=== PATIENT | female | born 2000 | race African-American/Black ===

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

== ENCOUNTER 2020-07-07 17:28 | Emergency (ER) | payer SELFPAY ==
[~2020-07-07] VITALS: Ht 172.7 cm; Wt 103.0 kg
[~2020-07-07 17:28] MED LIST: AMOX875T PO; DIPH25CA58 PO; NYST15CR2 TP; PRED50TA PO
--- NOTE | 2020-07-07 18:02 | PHYS DOC ---
Past Medical History Past Medical History: No Pertinent History (KALPANA FLORES APRN) Past Surgical History: No Surgical History Additional Past Surgical Histo: Bilat MYRINGOTOMY (KALPANA FLORES APRN) Smoking Status: Never Smoker Alcohol Use: None Drug Use: None (KALPANA FLORES APRN) General Adult EDM: Chief Complaint: VAGINAL BLEEDING HPI: HPI: Patient is a 20 year old female 1 para 0 currently 6 weeks presenting to the ED today complaining of vaginal bleeding in that be mana yesterday. Patient states this started as spotting and today she feels the bleeding has gotten slightly heavier. She states she has used 1 feminine pad since this morning. Denies any abdominal pain, denies any concerns for STDs, denies any nausea vomiting. Last menstrual cycle May 26, 2020 (KALPANA FLORES APRN) Review of Systems: Review of Systems: Constitutional: Denies fever or chills. [] Eyes: Denies change in visual acuity. [] HENT: Denies nasal congestion or sore throat. [] Respiratory: Denies cough or shortness of breath. [] Cardiovascular: Denies chest pain or edema. [] GI: Reports vaginal bleeding in . Denies abdominal pain, nausea, vomiting, bloody stools or diarrhea. [] : Denies dysuria. [] Musculoskeletal: Denies back pain or joint pain. [] Integument: Denies rash. [] Neurologic: Denies headache, focal weakness or sensory changes. [] Psychiatric: Denies depression or anxiety. [] (KALPANA FLORES APRN) Heart Score: Risk Factors: Risk Factors: DM, Current or recent (<one month) smoker, HTN, HLP, family history of CAD, obesity. Risk Scores: Score 0 - 3: 2.5% MACE over next 6 weeks - Discharge Home Score 4 - 6: 20.3% MACE over next 6 weeks - Admit for Clinical Observation Score 7 - 10: 72.7% MACE over next 6 weeks - Early Invasive Strategies (KALPANA FLORES APRN) Allergies: Allergies: Allergies Coded Allergies Type Severity Reaction Last Updated Verified amoxicillin Allergy Intermediate maculopapular rash. No Airway compromise Yes (KALPANA FLORES APRN) Physical Exam: PE: Constitutional: Well developed, well nourished, no acute distress, non-toxic appearance. [] HENT: Normocephalic, atraumatic, bilateral external ears normal, oropharynx moist, no oral exudates, nose normal. [] Eyes: PERRLA, EOMI, conjunctiva normal, no discharge. [] Neck: Normal range of motion, no tenderness, supple, no stridor. [] Cardiovascular:Heart rate regular rhythm, no murmur [] Lungs & Thorax: Bilateral breath sounds clear to auscultation [] Abdomen: Bowel sounds normal, soft, no tenderness, no masses, no pulsatile masses. [] Pelvic exam External pelvic appears normal, cervix is visualized, closed, no CMT, no adnexal tenderness, trace amount of bright red blood in the vaginal vault Skin: Warm, dry, no erythema, no rash. [] Back: No tenderness, no CVA tenderness. [] Extremities: No tenderness, no cyanosis, no clubbing, ROM intact, no edema. [] Neurologic: Alert and oriented X 3, normal motor function, normal sensory function, no focal deficits noted. [] Psychologic: Affect normal, judgement normal, mood normal. [] (KALPANA FLORES APRN) Current Patient Data: Labs: Laboratory Tests Test 07/07/20 17:50 POC Urine HCG, Qualitative Hcg positive (Negative) (KALPANA FLORES APRN) EKG: EKG: [] (KALPANA FLORES APRN) Radiology/Procedures: Radiology/Procedures: []PROCEDURE: OB <14 WKS W/TV Obstetric ultrasound less than 14 weeks with transvaginal: Reason for examination: Vaginal bleeding and . Transabdominal and transvaginal ultrasound examination of the pelvis was performed. Transabdominally, the uterus appears be normal in size at 7.3 x 3.9 cm in greatest dimension. The endometrium and adnexa are not optimally visualized. Transvaginally, the uterus shows no focal lesions. Endometrium is not abnormally thickened at 9.6 mm. No intrauterine or ectopic gestation is seen. Right ovary measures 1.8 x 3.0 x 1.7 cm in greatest dimension and contains a small follicle and normal vascular flow. Left ovary measures 2.6 x 1.2 x 2.1 cm in greatest dimension contains a small follicle normal vascular flow. No adnexal masses or free fluid are seen. IMPRESSION: No evidence of intrauterine or ectopic gestation. Electronically signed by: Oly Mendosa MD (07/07/2020 6:20 PM) [facility] DICTATED and SIGNED BY: OLY MENDOSA MD DATE: 07/07/20 [id number] (KALPANA FLORES APRN) Course & Med Decision Making: Course & Med Decision Making Pertinent Labs and Imaging studies reviewed. (See chart for details) This is a 20-year-old female patient presenting to the ED today complaining of vaginal bleeding in , symptoms began yesterday. She is a 1 para 0. Last menstrual cycle May 26, 2020 Positive urine hCG. CBC with a normal WBC, hemoglobin 11.9, hematocrit 34.8. OB ultrasound negative for an IUP or ectopic. Beta Hcg [address] Camacho awaiting type and screen and UA (KALPANA FLORES APRN) Course & Med Decision Making I assumed care of this patient at 1900. Briefly this is a 20-year-old female who is reportedly 6 weeks by last muscle. Presented the emergency department for new onset of vaginal bleeding. Labs and ultrasound were obtained which did not demonstrate any significant abnormality and there is no detected heartbeat. At this time is presumed that there is a completed spontaneous . Initially awaiting for review Rh type make sure that the patient did not require RhoGam. Patient appears to be a positive at this point can be safely discharged home (GERALD CAMACHO MD) Dragon Disclaimer: Dragon Disclaimer: This electronic medical record was generated, in whole or in part, using a voice recognition dictation system. (KALPANA FLORES APRN) Departure Departure Impression: Primary Impression: Miscarriage Disposition: 01 DC HOME SELF CARE/HOMELESS Condition: STABLE Referrals: NO PCP (PCP) Patient Instructions: Miscarriage Additional Instructions: EMERGENCY DEPARTMENT GENERAL DISCHARGE INSTRUCTIONS Thank you for coming to [facility] Emergency Department (ED) today and trusting us with you care. We trust that you had a positive experience in our Emergency Department. If you wish to speak to the department management, you may call the Director at [phone]. YOUR FOLLOW UP INSTRUCTIONS ARE FOLLOWS: 1. Do you have a private Doctor? If you do not have a private doctor, please ask for a resource list of physicians or clinics that may be able to assist you with follow up care. 2. The Emergency Physicain has interpreted your x-rays. The X-Ray specialist will also review them. If there is a change in the findings, you will be notified in 48 hours when at all possible. 3. A lab test or culture has been done, your results will be reviewed and you will be notified if you need a change in treatment. ADDITIONAL INSTRUCTIONS AND INFORMATION: 1. Your care today has been supervised by a physician who is specially trained in emergency care. Many problems require more than one evaluation for a complete diagnosis and treatment. We recommend that you schedule your follow up appointment as recommended to ensure complete treatment of you illness or injury. If you are unable to obtain follow up care and continue to have a problem, or if your condition worsens, we recommend that you return to the ED. 2. We are not able to safely determine your condition over the phone nor are we able to give sound medical advice over the phone. For these safety reasons, if you call for medical advice we will ask you to come to the ED for further evaluation. 3. If you have any questions regarding these discharge instructions please call the ED at [phone]. SAFETY INFORMATION: In the interest of safety, wellness, and injury prevention; we encourage you to wear your sealbelt, if you smoke; quite smoking, and we encourage family to use a protective helmet for bicycling and other sporting events that present an increased risk for head injury. IF YOUR SYMPTOMS WORSEN OR NEW SYMPTOMS DEVELOP, OR YOU HAVE CONCERNS ABOUT YOUR CONDITION; OR IF YOUR CONDITION WORSENS WHILE YOU ARE WAITING FOR YOUR FOLLOW UP APPOINTMENT; EITHER CONTACT YOUR PRIMARY CARE DOCTOR, THE PHYSICIAN WHOSE NAME AND NUMBER YOU WERE GIVEN, OR RETURN TO THE ED IMMEDIATELY. KALPANA FLORES APRN Jul 07, 2020 18:02 GERALD CAMACHO MD Jul 07, 2020 20:37
[2020-07-07 18:04] LABS: BARBITURATES NEG (NEG); BENZODIAZEPINES NEG (NEG); CANNABINOIDS NEG (NEG); COCAINE NEG (NEG); METHADONE NEG (NEG); OPIATES NEG (NEG); PHENCYCLIDINE NEG (NEG)
[2020-07-07 18:07] LABS: BASO # 0.1 x10^3/uL (0.0-0.2); BASO % 1 % (0-3); EOS # 0.1 x10^3/uL (0.0-0.7); EOS % 2 % (0-3); HEMATOCRIT 34.8 % (36.0-47.0); HEMOGLOBIN 11.9 g/dL (12.0-15.5); LYMPH # 2.6 x10^3/uL (1.0-4.8); LYMPH % 38 % (24-48); MEAN CORPUSCULAR HEMOGLOBIN 30 pg (25-35); MEAN CORPUSCULAR HGB CONC 34 g/dL (31-37); MEAN CORPUSCULAR VOLUME 86 fL (79-100); MONO # 0.7 x10^3/uL (0.0-1.1); MONO % 10 % (0-9); NEUT # 3.3 x10^3/uL (1.8-7.7); NEUT % 49 % (31-73); PLATELET COUNT 232 x10^3/uL (140-400); RED BLOOD COUNT 4.04 x10^6/uL (3.50-5.40); RED CELL DISTRIBUTION WIDTH 14.3 % (11.5-14.5); WHITE BLOOD COUNT 6.7 x10^3/uL (4.0-11.0)
[2020-07-07 18:15] LABS: AMPHETAMINE/METHAMPHETAMINE NEG (NEG)
[2020-07-07 18:22] LABS: CALCIUM 9.2 mg/dL (8.5-10.1); CREATININE 0.9 mg/dL (0.6-1.0); GFR 95.6
--- NOTE | 2020-07-07 18:23 | RAD ---
Obstetric ultrasound less than 14 weeks with transvaginal: Reason for examination: Vaginal bleeding and . Transabdominal and transvaginal ultrasound examination of the pelvis was performed. Transabdominally, the uterus appears be normal in size at 7.3 x 3.9 cm in greatest dimension. The end ometrium and adnexa are not optimally visualized. Transvaginally, the uterus shows no focal lesions. Endometrium is not abnormally thickened at 9.6 mm. No intrauterine or ectopic gestation is seen. Right ovary measures 1.8 x 3.0 x 1.7 cm in greatest di mension and contains a small follicle and normal vascular flow. Left ovary measures 2.6 x 1.2 x 2.1 c m in greatest dimension contains a small follicle normal vascular flow. No adnexal masses or free flu id are seen. IMPRESSION: No evidence of intrauterine or ectopic gestation. Electronically signed by: Oly Jimenez MD (07/07/2020 6:20 PM) [facility]
[2020-07-07 18:28] LABS: ALBUMIN 3.5 g/dL (3.4-5.0); ALBUMIN/GLOBULIN RATIO 0.9 (1.0-1.7); TOTAL BILIRUBIN 0.2 mg/dL (0.2-1.0); TOTAL PROTEIN 7.5 g/dL (6.4-8.2)
[2020-07-07 20:12] VITALS: BP 111/57
[2020-07-09 19:09] LABS: GC PROBE Negative (Negative)
== END 2020-07-07 20:50 | disposition home or self-care (01) ==
LOC: ER 17:28
DX: O03.9 Complete or unspecified spontaneous abortion without complication (principal); Z88.1 Allergy status to other antibiotic agents
CPT/HCPCS: 36415; 76801; 76817; 80053; 80307; 81025; 84702; 85025; 86850; 86900; 86901; 87491; 87591; 99285; G0480; Q0111